=== PATIENT | female | born 1940 | race Caucasian/White ===

== ENCOUNTER → 2021-11-11 10:29 | Outpatient (BNVA) | payer MEDICARE, SELFPAY | PROVIDERS: Visit Provider Specialist | DX: G56.01 Carpal tunnel syndrome, right upper limb (principal); M65.341 Trigger finger, right ring finger; M72.0 Palmar fascial fibromatosis [Dupuytren] | CPT/HCPCS: 73130; 99204 ==

== ENCOUNTER → 2021-12-24 10:35 | Outpatient (BNVA) | payer MEDICARE, SELFPAY | PROVIDERS: PCP Registered Nurse; Referring Provider Specialist; Visit Provider Specialist | DX: G56.02 Carpal tunnel syndrome, left upper limb (principal); G56.22 Lesion of ulnar nerve, left upper limb | CPT/HCPCS: 95908; 95910 ==

== ENCOUNTER → 2022-01-09 10:24 | Outpatient (BNVA) | payer MEDICARE, SELFPAY | PROVIDERS: PCP Registered Nurse; Referring Provider Specialist; Visit Provider Specialist | DX: G56.01 Carpal tunnel syndrome, right upper limb (principal); G56.21 Lesion of ulnar nerve, right upper limb | CPT/HCPCS: 95860; 99202 ==

== ENCOUNTER → 2022-01-20 09:37 | Outpatient (BNVA) | payer MEDICARE, SELFPAY | PROVIDERS: PCP Registered Nurse; Visit Provider Specialist | DX: G56.01 Carpal tunnel syndrome, right upper limb (principal); M65.341 Trigger finger, right ring finger; G56.21 Lesion of ulnar nerve, right upper limb | CPT/HCPCS: 99215 ==

== ENCOUNTER 2022-02-07 09:12 | Day surgery (SDC) | payer MEDICARE, SELFPAY ==
[2022-02-07] VITALS (13 sets, daily range): BP systolic 135–225; BP diastolic 49–79; PULSE 50–64; RESP 16–18; TEMP 36.2–36.6; O2SAT 98–100
--- NOTE | 2022-02-07 09:53 | ANES.PREANE2 ---
Pre-Anesthetic Assessment Height/Weight: Height 1.63 m Weight 53.07 kg Preop Diagnosis: Right carpal tunnel syndrome with ring finger triggering right Operation Date: 02/07/22 10:55 Proposed Procedures p : RIGHT CARPAL TUNNEL RELEASE WITH RIGHT RING FINGER TRIGGER FINGER RELEASE [id number], G56.0,M65.30(Right) - Bell Anderson MD s Trigger Finger Release(Right) - Bell Anderson MD Familial anesthetic complications: None Was Beta Erwin taken within 24 hours: Yes Was Clonidine taken within 24 hours: N/A Last intake: > 8hrs Social Tobacco, No alcohol and No tobacco Exam alert, oriented x 3, clear to auscultation bilaterally and regular rate & rhythm Airway Mallampati: Class II Dentition: full CV/HEM Hypertension GI Gastroesophageal Reflux Disease Metabolic Hyperlipidemia and Thyroid Disease Anesthetic Plan ASA status: 3 Anesthesia: General Risk of > 500 ml blood loss (7ml/kg in children): No Medications/Allergies Home Medications Medication Instructions Recorded Confirmed Last Taken Type amlodipine 5 mg tablet 5 mg PO DAILY 11/11/21 02/06/22 01/31/22 History duloxetine 30 mg capsule,delayed 30 mg PO DAILY 11/11/21 02/06/22 02/06/22 History release gabapentin 100 mg capsule 100 mg PO DAILY 11/11/21 02/06/22 02/06/22 History levothyroxine 25 mcg capsule 25 mcg PO DAILY 11/11/21 02/06/22 02/07/22 07:00 History metoprolol succinate 50 mg 50 mg PO BID 11/11/21 02/06/22 02/07/22 07:00 History tablet,extended release 24 hr pantoprazole 40 mg tablet,delayed 40 mg PO DAILY 11/11/21 02/06/22 02/07/22 07:00 History release rosuvastatin 10 mg tablet 10 mg PO DAILY 12/24/21 02/06/22 01/31/22 History Allergies Allergy/AdvReac Type Severity Reaction Status Date / Time Fentanyl Allergy Intermediate ALGY-Hives Uncoded 02/07/22 09:50 COUNT INCLUDES THE [facility] Anesthesia Social History Smoking and tobacco status: former smoker (60 years ago) Alcohol intake: never History of recent travel: No Data Anesthesia Cardiac Studies: No Data to Display
[2022-02-07] MEDS: acetaminophen 1,000 MG/100 ML PIGGYBACK 400 MG IV (10:25)
[2022-02-07] MEDS: sodium chloride 0.9% 1,000 ML 30 ML IV (10:25)
--- NOTE | 2022-02-07 10:28 | W.PM.OPSUD ---
Surgery/Procedure H&P Update DATE OF PROCEDURE: February 07, 2022 DATE H&P PERFORMED: 01/20/22 H&P UPDATE INFORMATION: I have reviewed H&P completed within last 30 days, I have examined patient prior to procedure and Changes to prior documentation as noted here CHANGES TO PREVIOUS DOCUMENTATION: The patient states her triggering of the right ring finger has resolved, and we will plan only right carpal tunnel release. PREOP DIAGNOSIS: Right carpal tunnel syndrome PLANNED PROCEDURE: Operation Date: 02/07/22 10:55 Proposed Procedures p : RIGHT CARPAL TUNNEL RELEASE [id number], G56.0 (Right) - Bell Anderson MD Related Problem List Diagnoses (1) Carpal tunnel syndrome on right:
[2022-02-07] MEDS: hyDRALAzine 20 mg/mL INJ 1 mL 5 MG IVP (10:34)
[2022-02-07] MEDS: CELEcoxib 200 mg Capsule 400 MG PO (10:40)
[2022-02-07] MEDS: ceFAZolin 2,000 MG in sodium chloride 0.9% (plus) 50 ML 100 MG IV (10:43)
--- NOTE | 2022-02-07 12:05 | P.OP_ITS ---
Operative Report Date of procedure: February 07, 2022 Pre-op diagnosis: Right carpal tunnel syndrome Post-op diagnosis: Right carpal tunnel syndrome Post-op findings: Significant compression across the carpal canal. No significant triggering. Procedure done: Right carpal tunnel release Specimens removed/disposition: None Pathology: none sent Surgeon: Bell Anderson Anesthesia: General (Per LMA, ASA 3) Estimated blood loss (mL): 2 Tourniquet time (min): 21 (At 250 mgHg) IV fluids (mL): 700 Urine output (mL): 0 (No Brown) Complications: None Findings: Significant compression across the carpal canal Condition: stable Disposition: PACU (Then to same-day surgery for discharge to home) Brief History: This is a 81 year old female patient who presents today for right carpal tunnel release. Upon initial evaluation, she had had some triggering of the right ring finger, and plans have been made to potentially release his trigger finger, but she notes that it has not been triggering since her last visit. She states her right hand pain has been on going for a couple of months. She denies any injury or trauma. 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 She explains she experiences a burning sensation across her right palm. She takes duloxetine and gabapentin for pain relief. In the office, consents were signed and questions were answered. Patient was scheduled for surgery as noted above. Procedure: The patient was brought to the operating theater. The patient had a general anesthesia per LMA, ASA 3. The tourniquet was elevated to 250 mmHg for a total tourniquet time of 21 minutes. The patient was also given Ancef 2 g preoperatively. The arm was then prepped and draped with DuraPrep in usual fas hion with the arm draped free. A surgical pause was performed. At the time, the surgical pause, we confirmed the site and side of surgery. We also confirmed the patient's identity, appropriate and timely administration of preoperative antibiotics and preoperative surgical markings. An incision was then made along the thenar crease. The incision crossed the wrist joint in a curvilinear fashion. Dissection continued through skin and soft tissues using a scalpel. The palmaris longus was identified along with the transverse carpal ligament. Each of these was released carefully to avoid injury to the median nerve.? The transverse carpal ligament was significantly thickened.? We were able to dissect gently into the carpal canal which was noted to be quite tight with significant compression across the median nerve. The nerve was visualized and was an hourglass shape with purplish discoloration. The canal was subsequently palpated to assure there was no bony encroachment upon the canal. The canal was then palpated distally and proximally to assure that my small finger was passed easily without impingement. Finding this to be so, attention was directed to closure. The wound was irrigated with ropivacaine plain. It was then closed with 2-0 nylon in an interrupted mattress fashion. Sterile dressing was then placed consisting of Dermabond, OpSite, fluffed fluffs, sterile soft roll, and an Satinder wrap. The tourniquet was released after 21 minutes. There were no complications. There were no specimens. The procedure was well tolerated. Plan is the patient will be discharged home. Related Problem List Diagnoses (1) Carpal tunnel syndrome on right:
--- NOTE | 2022-02-07 14:42 | ANE.PACU2 ---
Inpatient post-anesthesia follow up: Airway intact: Yes Vital signs: Temperature 98 F Pulse Rate 60 Respiratory Rate 17 Blood Pressure 155/60 Pulse Oximetry 99 Oxygen Delivery Me thod Room Air Oxygen Flow Rate 6 Fraction of Inspir ed Oxygen Hydration adequate: Yes Nausea and vomiting: No Pain level: 1 Mental status: Baseline
== END 2022-02-07 12:45 | disposition home or self-care (01) ==
PROVIDERS: PCP Registered Nurse; Visit Provider Specialist
PROC: (CPT 64721; principal; 2022-02-07 10:55)
DX: G56.01 Carpal tunnel syndrome, right upper limb (principal); K21.9 Gastro-esophageal reflux disease without esophagitis; E78.5 Hyperlipidemia, unspecified; I10 Essential (primary) hypertension; Z87.891 Personal history of nicotine dependence
CPT/HCPCS: 64721; J0131; J0360; J0690; J2405; J2704; J3490; J7030

== ENCOUNTER → 2022-02-19 08:23 | Outpatient (BNVA) | payer MEDICARE, SELFPAY | PROVIDERS: PCP Registered Nurse; Visit Provider Nurse Practitioner Family | DX: Z98.890 Other specified postprocedural states (principal) | CPT/HCPCS: 99024 ==

== ENCOUNTER 2024-10-07 14:12 | Emergency (ER) | payer MEDICARE, SELFPAY ==
--- NOTE | 2024-10-07 14:18 | ECG_ITS ---
[facility] [employer] Test Date: 2024-10-07 Pat Name: Billie Calabrese Department: Room: Gender: Female Debug Technician: : 1940 Requested By: Nathan Griffin Order Number: [id number] Reading MD: Simon Wills M.D. Measurements Intervals [place] Rate: 60 P: 62 UT: 247 QRS: 34 QRSD: 92 T: 54 QT: 417 QTc: 419 Interpretive Statements SINUS RHYTHM WITH FIRST DEGREE AV BLOCK LOW QRS VOLTAGE IN PRECORDIAL LEADS [QRS DEFLECTION < 1.0 mV IN CHEST LEADS] No previous ECG available for comparison Electronically Signed On 10-08-2024 20:48:44 CDT by Simon Wills M.D. [id number]
[2024-10-07 14:19] VITALS: BP 163/61; PULSE 64; RESP 16; TEMP 36.6; O2SAT 99
--- NOTE | 2024-10-07 14:21 | XR_ITS ---
WS: [id number] Portable AP upright chest, 10/07/2024 Clinical Data: cp Comparison: None. Findings: No nodules, masses or effusions are seen. The heart is normal. The pulmonary vascularity is not increased. No pneumonia or pneumothorax is seen. The aortic arch shows calcification and tortuosity. There are monitor leads on the chest wall. XR/XR chest 1V portable [id number] Impression: Atherosclerosis.
--- OUTSIDE RECORDS SUMMARY | 2024-10-07 14:22 | XMS_ITS | Clinical Summary ---
Author Organization [facility] [address] [facility] Address [address] [place] [address] Phone Care Team Providers Care Radio Board Operator Name Role Phone Caryn Mccann MD Primary Care Provider [phone] Allergies Active Allergy Reactions Criticality Noted Date Comments Fentanyl Hives High 05/10/2020 Medications diphenhydrAMINE (BENADRYL) 25 mg tablet Take 25 mg by mouth 1 time daily as needed for Allergies. Active omeprazole (PriLOSEC) 40 mg Capsule, Delayed Release(E.C.) Take 1 Capsule (40 mg) by mouth daily. 90 Capsule 1 1 Active amLODIPine (NORVASC) 5 mg tablet Take 1 Tablet (5 mg) by mouth daily. 90 Tablet 1 1 Active metoprolol tartrate (LOPRESSOR) 50 mg tablet Take 1 Tablet (50 mg) by mouth 2 times daily. 180 Tablet 1 1 Active levothyroxine 25 mcg tablet Take 1 Tablet (25 mcg) by mouth daily in the morning. 90 Tablet 1 1 Active hydrOXYzine HCL (ATARAX) 25 mg tablet Take 1 Tablet (25 mg) by mouth 3 times daily as needed for Itching. 60 Tablet 1 1 Active sulfaSALAzine (AZULFIDINE) 500 mg tablet Take 1 Tablet (500 mg) by mouth 4 times daily. 360 Tablet 1 1 Active lisinopriL (PRINIVIL) 10 mg tablet Take 1 Tablet (10 mg) by mouth daily. 90 Tablet 1 1 Active DULoxetine (CYMBALTA) 30 mg Capsule, Delayed Release(E.C.) Take 1 Capsule (30 mg) by mouth daily. 90 Capsule 1 1 Active rosuvastatin (CRESTOR) 10 mg tablet Take 1 Tablet (10 mg) by mouth daily. 90 Tablet 1 1 Active nitroglycerin (NITROSTAT) 0.4 mg Tablet, Sublingual Place 1 Tablet (0.4 mg) under tongue every 5 minutes as needed for Chest Pain. 25 Tablet 1 1 Active HYDROcodone-acet aminophen (NORCO) 5-325 mg tabletIndication s:Arthralgia, unspecified joint Take 1 Tablet by mouth 2 times daily as needed for Pain, Moderate (Arthritis). Max Daily Amount: 2 Tablets 46 Tablet 1 Active gabapentin (NEURONTIN) 100 mg capsule Take 1 Capsule (100 mg) by mouth daily. 90 Capsule 1 1 Active Active Problems Problem Noted Date Diagnosed Date Abnormal mammogram 05/10/2020 Chest pain 05/10/2020 Benign hypertension 05/10/2020 Hyperlipidemia 05/10/2020 Hypothyroidism 05/10/2020 Neuropathy 05/10/2020 Pruritus 05/10/2020 Gastroesophageal reflux disease 05/10/2020 Immunizations Immunization Administration Dates Next Due (SPIKEVAX) (12 YRS UP PRIMAR Y SERIES) COVID-19 VACCINE - MRNA-1273(PF) 100 MCG/0.5 ML IM SUSP 06/19/2020 Family History Medical History Relation Name Comments Cancer Father Diabetes Mother Heart Disease Mother Other Mother Cancer Sister 1 Diabetes Sister 1 Other Sister 1 Other Sister 2 Other Sister 3 Relation Name Status Comments Father Mother Sister 1 Alive Sister 2 Alive Sister 3 Alive Social History Tobacco Use Types Packs/Day Years Used Date Smoking Tobacco: Former Cigarettes Q uit: 05/10/1965 Smokeless Tobacco: Former Alcohol Use Standard Drinks/Week Comments Never 0 (1 standard drink = 0.6 oz pur e alcohol) Comments No Sex and Gender Information Value Date Recorded Sex Assigned at Not on file Legal Sex Female 9:39 AM CDT Gender Identity Not on file Sexual Orientation Not on file Last Filed Vital Signs Vital Sign Reading Time Taken Comments Blood Pressure 140/60 06/25/2020 10:57 AM CDT Pulse 60 06/25/2020 10:57 AM CDT Temperature 36.2 C (97.2 F) 06/25/2020 10:57 AM CDT Respiratory Rate 16 05/16/2020 2:35 PM CDT Oxygen Saturation 97% 06/25/2020 10:57 AM CDT Inhaled Oxygen Concentration - - Weight 56.7 kg (125 lb) 06/25/2020 10:57 AM CDT Height 160 cm (5' 3 ) 06/25/2020 10:57 AM CDT Body Mass Index 22.14 06/25/2020 10:57 AM CDT Plan of Treatment Health Maintenance Due Date Last Done Comments DTAP/TDAP/TD VACCINES (1 - Tdap) 1959 Traditional Medicare (ACO) A nnual Wellness Visit 1959 PNEUMOCOCCAL VACCINE 50+ YEA RS (1 of 1 - PCV) 1992 ZOSTER VACCINE (1 of 2) 1992 RSV VACCINE (60+ or ) (1 - 1-dose 75+ series) 2017 COVID-19 Vaccine (2 - season) 2023 INFLUENZA VACCINE (#1) 2024 05/10/2020, 2020 OSTEOPOROSIS SCREENING 01/03/2025 01/04/2020 Procedures Procedure Name Priority Date/Time Associated Diagnosis Comments XR DEXA BONE DENSITY AXIAL 1 OR MORE SITES Routine 01/04/2020 from Last 3 Months or Most Recently Relevant to Health Maintenance Results * XR DEXA BONE DENSITY AXIAL 1 OR MORE SITES (01/04/2020) Anatomical Region Laterality Modality Other us Abstract Spg Provider DIAGNOSTIC IMAGING ORDERAB LES Final Result from Last 3 Months or Most Recently Relevant to Health Maintenance Insurance MEDICARE PART A AND B Care Teams Radio Board Operator Relationship Specialty Start Date End Date Caryn Mccann MD [address] [phone] PCP - General Family Practice 05/16/20
--- OUTSIDE RECORDS SUMMARY | 2024-10-07 14:22 | XMS_ITS | Patient Health Record ---
Author Organization [facility] Address [address] [place], [place] [id number] Care Team Providers Care Desktop Engineer Name Role Phone Add, a provider Primary Care Provider LOREN Rodriguez Unavailable [phone] Allergies Allergen (clinical drug ingredient) Drug/Non Drug Allergy documented on EMR Reaction Allergy Type Onset Date Status fentanyl fentaNYL hives Drug Allergy Active Reason For Referral No Information Medications Medication SIG (Take, Route, Frequency, Duration) Notes Start Date End Date Status Tylenol 8 HR Arthritis Pain 650 mg 1 tab orally 2 times daily Unknown Prevagen Unknown metoprolol 50 mg 1 tab(s) orally twic e daily Unknown amLODIPine 10 mg 1 tab(s) orally once a day Unknown rosuvastatin 10 mg 1 tab(s) orally once a day Unknown benzonatate 100 mg 1-2 caps orally 3 ti mes a day for cough for 5 days 06/04/2024 Active levothyroxine 25 mcg (0.025 mg) 1 tab(s) orally once a day Unknown azithromycin 250 mg 2 tablets on the day, then 1 tablet daily for 4 days po once a day for 5 days 06/04/2024 Active pantoprazole 40 mg 1 tab(s) orally once a day Unknown Social History Tobacco Use: Social History Observation Description Date Details (start date - stop date) Never Smoker NA - NA Tobacco Use: Question Answer Notes Are you a: nonsmoker AUDIT-C (Standard) Question Answer Notes Did you have a drink containing alcohol in the p ast year? No Points 0 Interpretation Negative Vital Signs Heart Rate 80 /min 06/04/2024 Temperature 98.1 degrees Fahrenheit 06/04/2024 Respiratory Rate 18 /min 06/04/2024 Oximetry 99 06/04/2024 Blood pressure diastolic 48 mm Hg 06/04/2024 Height 62.0 in 06/04/2024 Blood pressure systolic 114 mm Hg 06/04/2024 Weight 129.4 lbs 06/04/2024 BMI 23.66 kg/m2 06/04/2024 Encounters Encounter Location Date Provider Diagnosis [facility] [address] [place], [place] [id number] 06/04/2024 LOREN BENAVIDESSINS Bronchitis J40 and Cerumen impaction H61.20 Assessments Encounter Date Diagnosis (ICD Code) Assessment Notes Treatment Notes Treatment Clinical Notes Section Notes 06/04/2024 Bronchitis (ICD-10 - J40) Increase fluids. May use OTC tylenol or ibuprofen for minor pain / fever; OTC antihistamines / decongestants as directed as needed to help with congestion or post nasal drip. Humidified air. Vicks vapo-rub. Take the prescribed antibiotic fully as directed. If symptoms persist or worsen, please come back for re-evaluation or follow-up with your PCP. Patient has voiced understanding. 06/04/2024 Cerumen impaction (ICD-10 - H61.20) Keep your ears clean and dry. You may use OTC Tylenol or ibuprofen as directed to help with minor irritation if needed, If you develop worsening pain or drainage from the ear, please come back for re-evaluation or follow-up with your PCP. Patient voiced understanding. 06/04/2024 Luz Maria Patten 06/04/2024 10:12:30 AM CDT > need to call pharmacy to verify mg dosage on meds. Meme Plan Of Treatment No Information Medical (General) History Medical History History ICD Code HTN hypothyroidism high cholestrol Surgical History Surgery Date(Month/Year) Gallbladder removal appendectomy Tonsillectomy Carpal tunnel Hospitalization History Reason Date(Month/Year) See above
--- OUTSIDE RECORDS SUMMARY | 2024-10-07 14:22 | XMS_ITS | Clinical Summary ---
Author Organization [facility] 1 [address] [facility] Address [address] [place] [address] Phone Care Team Providers Care Casting Operator Name Role Phone Pedro Shrestha MD Primary Care Provider [phone] Allergies Active Allergy Reactions Criticality Noted Date Comments Fentanyl Hives High 05/10/2020 Medications nitroglycerin (NITROSTAT) 0.4 mg Tablet, SublingualIndicat ions:Angina pectoris Place 1 Tablet (0.4 mg) under tongue every 5 minutes as needed for Chest Pain. 25 Tablet 1 022 Active Additional Information Patient not taking.Reported on 01/06/2023 acetaminophen (TYLENOL ARTHRITIS) 650 mg Extended Release tablet Take 650 mg by mouth every 6 hours as needed for Pain. Active dicyclomine (BENTYL) 10 mg capsuleIndication s:Irritable bowel syndrome with diarrhea Take 1 Capsule (10 mg) by mouth 4 times daily as needed for Other (See Comment) (intestinal spasm). 120 Capsule 023 Active EPINEPHrine (EPIPEN) 0.3 mg/0.3 mL Auto-InjectorIndi cations:Allergy to alpha-gal Inject 0.3 mL (0.3 mg) by intramuscular injection 1 time daily as needed for Anaphylaxis. 1 Each 1 023 Active Additional Information Patient not taking.Reported on 10/05/2023 triamcinolone acetonide (KENALOG) 0.5 % CreamIndications: Insect bite, unspecified site, initial encounter Apply to affected area 2 times daily. 15 Gram 024 Active amLODIPine (NORVASC) 10 mg tabletIndications :Essential hypertension Take 1 Tablet (10 mg) by mouth daily. 90 Tablet 3 024 Active metoprolol tartrate (LOPRESSOR) 50 mg tabletIndications :Essential hypertension Take 1 Tablet (50 mg) by mouth 2 times daily. 200 Tablet 3 024 Active rosuvastatin (CRESTOR) 10 mg tabletIndications :Hyperlipidemia, unspecified hyperlipidemia type Take 1 Tablet (10 mg) by mouth daily. 90 Tablet 3 024 Active hydrOXYzine HCL (ATARAX) 25 mg tabletIndications :Pruritus TAKE 1 TABLET BY MOUTH THREE TIMES DAILY NEEDED FOR ITCHING 90 Tablet 025 Active pantoprazole (PROTONIX) 40 mg Tablet, Delayed Release (E.C.)Indications :Gastroesophageal reflux disease, unspecified whether esophagitis present Take 1 Tablet (40 mg) by mouth daily. 100 Tablet 3 025 Active levothyroxine 25 mcg tabletIndications :Hypothyroidism, unspecified type TAKE 1 TABLET BY MOUTH ONCE DAILY IN THE MORNING 100 Tablet 1 025 Active levothyroxine 25 mcg tabletIndications :Hypothyroidism, unspecified type TAKE 1 TABLET BY MOUTH ONCE DAILY IN THE MORNING 100 Tablet 3 024 2024 Discontinued Active Problems Problem Noted Date Diagnosed Date Benign hypertension 05/10/2020 Gastroesophageal reflux disease 05/10/2020 Hyperlipidemia 05/10/2020 Hypothyroidism 05/10/2020 Neuropathy 05/10/2020 Abnormal mammogram 05/10/2020 Encounters Date Type Department Care Team Description 09/28/2024 External Device Data [facility]STRACTION Provider, Abstract 09/19/[address] [phone] Tiara Jose FNP Hypothyroidism, unspecified type 09/07/2024 External Device Data [facility]STRA[facility] Provider, Abstract 09/07/2024 External Device Data [facility] Provider, Abstract 09/07/2024 External Device Data [facility] Provider, Abstract 09/06/2024 External Device Data [facility] Provider, Abstract 08/29/[address] [phone] Tiara Jose FNP Referral (Echo) 08/10/2024 External Device Data [facility] Provider, Abstract 08/09/2024 External Device Data [facility] Provider, Abstract 07/14/2024 External Device Data [facility]STRA[facility] Provider, Abstract 07/14/2024 Orders Only [facility] [place] [address] [facility] [address] [place] [phone] Keshia GaldamezEMANI Gastroesophageal reflux disease, unspecified whether esophagitis present 07/13/2024 External Device Data [facility] Provider, Abstract 07/12/2024 External Device Data [facility] Provider, Abstract 07/11/2024 8:59 AM CDT - 07/11/2024 11:59 PM CDT Hospital Encounter [facility] [address] [facility] [place] [address] Discharge Disposition: Home or Self Care from Last 3 Months Immunizations Immunization Administration Dates Next Due (SPIKEVAX) (12 YRS UP PRIMAR Y SERIES) COVID-19 VACCINE - MRNA-1273(PF) 100 MCG/0.5 ML IM SUSP 06/19/2020 INFLUENZA VACCINE HIGH DOSE QUADRIVALENT 65 YR UP PF IM 12/16/2022,02/12/2021 02/12/2022 INFLUENZA VACCINE QUADRIVALENT RECOMB 18 YR UP P F IM 10/31/2021 INFLUENZA VACCINE TRIVALENT SPLIT VIRUS, (6 MOS UP), 0.5ML (PF), IM 02/18/2024 Family History Medical History Relation Name Comments Cancer Father Diabetes Mother Heart Disease Mother Other Mother Other Sister 1 Other Sister 2 Cancer Sister 3 Diabetes Sister 3 Other Sister 3 Relation Name Status Comments Father Mother Sister 1 Alive Sister 2 Alive Sister 3 Alive Social History Tobacco Use Types Packs/Day Years Used Date Smoking Tobacco: Former Cigarettes Q uit: 05/10/1965 Smokeless Tobacco: Former Tobacco Cessation:Counseling Given: No Alcohol Use Standard Drinks/Week Comments Never 0 (1 standard drink = 0.6 oz pur e alcohol) Comments No Sex and Gender Information Value Date Recorded Sex Assigned at Not on file Legal Sex Female 6:14 PM CDT Gender Identity Not on file Sexual Orientation Not on file Last Filed Vital Signs Vital Sign Reading Time Taken Comments Blood Pressure 130/78 06/27/2024 4:16 PM CDT Pulse 66 06/27/2024 4:16 PM CDT Temperature 35.9 C (96.7 F) 06/27/2024 4:16 PM CDT Respiratory Rate 16 06/27/2024 4:16 PM CDT Oxygen Saturation 100% 06/27/2024 4:16 PM CDT Inhaled Oxygen Concentration - - Weight 58.6 kg (129 lb 3.2 oz) 06/27/2024 4:16 P M CDT Height 162.6 cm (5' 4 ) 06/27/2024 4:16 PM CDT Body Mass Index 22.18 06/27/2024 4:16 PM CDT Plan of Treatment Upcoming Encounters Date Type Department Care Team (Late st Contact Info) Description 10/14/2024 2:45 PM CDT Appointment [facility] [address] [phone] Tiara Jose, [facility] [address] [phone] 02/17/2025 2:00 PM STUMMEL SELECTOR Office Visit [facility] [place] [address] [place] [address] Tiara Jose, [facility] [address] [place] [address] Health Maintenance Due Date Last Done Comments DTAP/TDAP/TD VACCINES (1 - Tdap) 1959 PNEUMOCOCCAL VACCINE 50+ YEA RS (1 of 1 - PCV) 1992 ZOSTER VACCINE (1 of 2) 1992 RSV VACCINE (60+ or ) (1 - 1-dose 75+ series) 2017 COVID-19 Vaccine (3 - 2023-2 5 season) 2023 06/19/2020, 05/22/2020 [place]) Preventative Visit/Annual Wellness Visit 02/24/2024 02/18/2024, 01/06/2023 INFLUENZA VACCINE (#1) 2024 , 12/16/2022, 10/31/2021, Additional history exists OSTEOPOROSIS SCREENING 01/03/2025 0, 01/04/2020, 01/04/2020, Additional history exists Procedures Procedure Name Priority Date/Time Associated Diagnosis Comments XR DEXA BONE DENSITY AXIAL 1 OR MORE SITES Routine 01/04/2020 12:00 AM STUMMEL SELECTOR from Last 3 Months or Most Recently Relevant to Health Maintenance Results * XR DEXA BONE DENSITY AXIAL 1 OR MORE SITES (01/04/2020 12:00 AM STUMMEL SELECTOR) Anatomical Region Laterality Modality Other us Abstract Spg Provider DIAGNOSTIC IMAGING ORDERAB LES Final Result from Last 3 Months or Most Recently Relevant to Health Maintenance Insurance [facility] MEDICARE HMO Care Teams Casting Operator Relationship Specialty Start Date End Date Pedro Shrestha MD [address] [facility] [address] [place] [address] PCP - General Family Practice 04/16/23
--- NOTE | 2024-10-07 15:19 | W.ED.CHESTPA ---
HPI - Chest Pain General: Chief Complaint: Chest Pain Stated Complaint: cp Time Seen by Provider: 10/07/24 14:42 Source: patient Mode of arrival: ambulatory Limitations: no limitations History of Present Illness: 84-year-old female who states that she started having chest pain this morning while driving. States then resolved on its returns to its pressure type pain she rates an 8 out of 10 she denies any shortness of breath denies any vomiting denies any diaphoresis. No history of coronary artery disease she denies any cough or fever. Associated symptoms: Deny abdominal pain, dyspnea, fever(s), nausea or vomiting Related Data Home Medications ?Medication ?Instructions ?Recorded ?Confirmed levothyroxine 25 mcg capsule 25 mcg PO DAILY 11/11/21 10/07/24 pantoprazole 40 mg tablet,delayed 40 mg PO DAILY 11/11/21 10/07/24 release rosuvastatin 10 mg tablet 10 mg PO DAILY 12/24/21 10/07/24 acetaminophen 650 mg 650 mg PO Q12H 10/07/24 10/07/24 tablet,extended release amlodipine 10 mg tablet 10 mg PO DAILY 10/07/24 10/07/24 hydroxyzine HCl 25 mg tablet 25 mg PO TID PRN Itching 10/07/24 10/07/24 metoprolol tartrate 50 mg tablet 50 mg PO BID 10/07/24 10/07/24 Allergies Allergy/AdvReac Type Severity Reaction Status Date / Time Fentanyl Allergy Intermediate ALGY-Hives Uncoded 02/19/22 08:38 Review of Systems Const: Denies: fever(s), chills, body aches or change in appetite ENMT: Denies: throat pain or dental pain Card: Reports: chest pain Resp: Denies: dyspnea GI: Denies: abdominal pain, nausea, vomiting or diarrhea Musc: Denies: neck pain or back pain Skin/Breast: Denies: rash Neuro: Denies: headache(s) PFSH ED PFSH: Social History Smoking and tobacco/nicotine status: former use of tobacco/nicotine (60 years ago) Alcohol intake: never Substance/Drug Use: never Physical Exam Const: COMMON NORMALS: no acute distress, patient oriented x3 and healthy appearing HENMT: COMMON NORMALS: normocephalic and atraumatic HEAD & SCALP: normocephalic and atraumatic Eye: COMMON NORMALS: conjunctivae normal CONJUNCTIVA: Yes conjunctivae normal Neck/C-Spine: COMMON NORMALS: full ROM and supple Chest: COMMONS NORMALS: normal inspection of the chest Resp: COMMON NORMALS: normal respiratory effort, No retractions, No use of accessory muscles and clear to auscultation bilaterally AUSCULTATION: clear to auscultation bilaterally Cardio: COMMON NORMALS: regular rate, regular rhythm and No murmurs present (Cardio) RATE: regular rate RHYTHM: regular rhythm GI: COMMON NORMALS: Normal to inspection, nondistended, normoactive bowel sounds present, Soft to palpation, non-tender and no masses PALPATION: Yes Soft to palpation Extremity: COMMON NORMALS: normal to inspection and full ROM Neuro: COMMON NORMALS: patient oriented x3, moves all extremities and no focal motor deficits Psych: COMMON NORMALS: mental status grossly normal, Normal thought process present and cooperative THOUGHT PROCESS: Normal thought process present Skin: COMMON NORMALS: no rashes or lesions noted and no wounds GENERAL SKIN EXAM: no rashes or lesions noted Course Vital Signs: Vital signs: Vital Signs Temperature 97.9 F 10/07/24 14:19 Pulse Rate 77 10/07/24 18:30 Respiratory Rate 21 H 10/07/24 18:30 Blood Pressure 133/57 10/07/24 18:30 Pulse Oximetry 96 10/07/24 18:30 Oxygen Delivery Me thod Room Air 10/07/24 14:19 MDM - Chest Pain Medical Decision Making Patient presents for chest pain she is now pain-free her troponins CAT scan are negative she has no signs of ACS no signs of PE she stable for discharge follow-up with PCP return if worsening. Medical Records I reviewed the patient's medical records. Lab Data I reviewed the patient's lab results. 10/07/24 15:18 10/07/24 15:18 Radiology Impressions Chest X-Ray 10/07/24 14:21 Impression: Atherosclerosis. Chest CTA 10/07/24 17:39 IMPRESSION: 1. No evidence of pulmonary embolism. 2. No acute findings in the chest. 3. Prior granulomatous disease. Laboratory Results WBC 8.31 10^3/uL (3.29-11.43) 10/07/24 15:18 RBC 4.30 10^6/uL (3.85-5.65) 10/07/24 15:18 Hgb 13.10 g/dL (11.27-16.99) 10/07/24 15:18 Hct 40.6 % (36-47) 10/07/24 15:18 MCV 94.4 fl (85-98) 10/07/24 15:18 MCH 30.5 pg (27-33) 10/07/24 15:18 MCHC 32.3 g/dL (30-55) 10/07/24 15:18 RDW 12.3 % (12.1-15.1) 10/07/24 15:18 Plt Count 234 10^3/cmm (157-399) 10/07/24 15:18 MPV 10.1 fL (7.4-10.4) 10/07/24 15:18 Neut % (Auto) 67.3 % 10/07/24 15:18 Lymph % (Auto) 17.9 % 10/07/24 15:18 Mayes % (Auto) 10.3 % 10/07/24 15:18 Eos % (Auto) 2.9 % 10/07/24 15:18 Baso % (Auto) 1.1 % 10/07/24 15:18 Neut # (Auto) 5.59 10^3/uL (1.8-7.7) 10/07/24 15:18 Lymph # (Auto) 1.5 10^3/uL (0.8-4.8) 10/07/24 15:18 Mayes # (Auto) 0.9 10^3/uL (0.2-0.9) 10/07/24 15:18 Eos # (Auto) 0.2 10^3/uL (0.0-0.8) 10/07/24 15:18 Baso # (Auto) 0.1 10^3/uL (0.0-0.1) 10/07/24 15:18 Nucleated RBC % (auto) 0 % 10/07/24 15:18 Nucleated RBCs # 0.0 /100WBC 10/07/24 15:18 Sodium 138 mmol/L (136-145) 10/07/24 15:18 Potassium 4.0 mmol/L (3.5-5.1) 10/07/24 15:18 Chloride 104 mmol/L (98-107) 10/07/24 15:18 Carbon Dioxide 17 mmol/L (22-29) L 10/07/24 15:18 Anion Gap 21.0 (5-19) H 10/07/24 15:18 BUN 15 mg/dL (8-23) 10/07/24 15:18 Creatinine 0.6 mg/dL (0.5-0.9) 10/07/24 15:18 GFR Calculation Not Reportable 10/07/24 15:18 Glucose 106 mg/dL (65-115) 10/07/24 15:18 Calculated Osmolality 287 mOsm/kg (285-295) 10/07/24 15:18 Calcium 9.3 mg/dL (8.5-10.5) 10/07/24 15:18 Total Bilirubin 0.5 mg/dL (0.15-1.2) 10/07/24 15:18 AST 48 U/L (0-32) H 10/07/24 15:18 ALT 49 U/L (0-33) H 10/07/24 15:18 Alkaline Phosphatase 113 U/L (35-105) H 10/07/24 15:18 Troponin T Baseline < 6 ng/L (0-10) 10/07/24 15:18 Troponin T 120 Minute < 6.0 ng/L (0-10) 10/07/24 18:15 Delta Troponin T 0 ABS# (0-10) 10/07/24 18:15 Total Protein 7.3 g/dL (6.6-8.7) 10/07/24 15:18 Albumin 4.4 g/dL (3.5-5.2) 10/07/24 15:18 Globulin 2.9 g/dL (1.3-4.6) 10/07/24 15:18 Lipase 49 U/L (13-60) 10/07/24 15:18 All radiology interpretation(s) finalized by discharge Clincial Decision Support The following clinical decision support tools were used to aid in care of the patient HEART Score -> History: Slightly Suspicous, EKG: Normal, Age: 65 or more yrs, Risk Factors: 1 or 2 Risk Factors, Troponin: Baseline Trop <16 ng/L. Resulting HEART Score: 3. Discharge Plan Discharge Patient Disposition: Home Clinical Impression: Chest pain Condition: Stable Prescriptions: No Action rosuvastatin 10 mg tablet 10 mg PO DAILY pantoprazole 40 mg tablet,delayed release (DR/EC) 40 mg PO DAILY levothyroxine 25 mcg capsule 25 mcg PO DAILY acetaminophen [Tylenol Arthritis] 650 mg Tablet Extended Release 650 mg PO Q12H amlodipine 10 mg tablet 10 mg PO DAILY metoprolol tartrate 50 mg tablet 50 mg PO BID hydroxyzine HCl 25 mg tablet 25 mg PO TID PRN (Reason: Itching) Discharge Orders: Discharge ED (Routine); Ordered 10/07/24 Ordered By: Nathan Griffin Referrals: Tiara Jose [Primary Care Provider, Family Practice] Discharge Diet: Advance as tolerated Discharge Activity: Resume usual activity Patient Instructions: Chest Pain (ED) Print Language: Trinidadian Coding Level of Care Code ED Thread Clipper for Krista Aguilar
[2024-10-07 15:26] LABS: Hematocrit 40.6 % (36-47); Hemoglobin 13.10 g/dL (11.27-16.99); Mean Corpuscular HGB Conc 32.3 g/dL (30-55); Mean Corpuscular Hemoglobin 30.5 pg (27-33); Mean Corpuscular Volume 94.4 fl (85-98); Nucleated Red Blood Cells % 0 %; Platelet Count 234 10^3/cmm (157-399); Red Blood Count 4.30 10^6/uL (3.85-5.65); White Blood Count 8.31 10^3/uL (3.29-11.43)
[2024-10-07 15:46] LABS: Troponin(5th) Baseline < 6 ng/L (0-10)
[2024-10-07 16:19] LABS: Alanine Aminotransferase 49 U/L (0-33); Albumin Level 4.4 g/dL (3.5-5.2); Alkaline Phosphatase 113 U/L (35-105); Anion Gap 21.0 (5-19); Aspartate Amino Transferase 48 U/L (0-32); Blood Urea Nitrogen 15 mg/dL (8-23); Calcium 9.3 mg/dL (8.5-10.5); Carbon Dioxide 17 mmol/L (22-29); Chloride 104 mmol/L (98-107); Creatinine Clr Calc Pharmacy 48.1233; Globulin 2.9 g/dL (1.3-4.6); Glucose 106 mg/dL (65-115); Lipase 49 U/L (13-60); Osmolality Calculated 287 mOsm/kg (285-295); Potassium 4.0 mmol/L (3.5-5.1); Sodium 138 mmol/L (136-145); Total Protein 7.3 g/dL (6.6-8.7)
[2024-10-07 16:47] VITALS: BP 156/57; PULSE 68; RESP 17; O2SAT 97
--- NOTE | 2024-10-07 16:57 | ECG_ITS ---
[facility]: 2024-10-07 Pat Name: Billie Calabrese Department: Room: Gender: Female Piper Helper: : 1940 Requested By: Nathan Grififn Order Number: [id number] Brian MD: Simon Wills M.D. Measurements Intervals [place] Rate: 69 P: 66 DC: 261 QRS: 30 QRSD: 91 T: 54 QT: 399 QTc: 428 Interpretive Statements SINUS RHYTHM WITH FIRST DEGREE AV BLOCK Compared to ECG 10/07/2024 14:18:57 No significant changes Electronically Signed On 10-09-2024 17:13:29 CDT by Simon Wills M.D. [email or web address]
[2024-10-07 17:00] VITALS: BP 155/58; PULSE 69; RESP 11; O2SAT 99
[2024-10-07 17:30] VITALS: BP 147/57; PULSE 70; RESP 15; O2SAT 94
--- NOTE | 2024-10-07 17:39 | CTR_ITS ---
PROCEDURE INFORMATION: Exam: CTA Chest With Contrast Exam date and time: 10/07/2024 5:57 PM Age: 84 years old Clinical indication: Chest pressure; C/O chest pain; Additional info: Cp TECHNIQUE: Imaging protocol: Computed tomographic angiography of the chest with contrast. Exam focused on the arteries. 3D rendering (Not supervised by radiologist): MIP and/or 3D reconstructed images were created by the technologist. Radiation optimization: All CT scans at this facility use at least one of these dose optimization techniques: automated exposure control; mA and/or kV adjustment per patient size (includes targeted exams where dose is matched to clinical indication); or iterative reconstruction. Contrast material: OMNI 350; Contrast volume: 61 ml; Contrast route: INTRAVENOUS (IV); COMPARISON: CR XR chest 1V portable [id number] 10/07/2024 3:18 PM RADIATION DOSE METRICS: Total DLP (mGy-cm): 229.94 FINDINGS: Pulmonary arteries: Normal. No pulmonary emboli. Aorta: Moderate diffuse aortic calcifications. No thoracic aortic aneurysm. Thyroid: Subcentimeter right thyroid nodule is likely of no clinical significance. Atrophic thyroid. Lungs: Mild biapical pleural/parenchymal scarring. Mild bibasilar atelectasis. Calcified granulomas in the right lower lobe. No suspicious pulmonary mass. Pleural spaces: Unremarkable. No pneumothorax. No pleural effusion. Heart: Trace pericardial fluid. Lymph nodes: Calcified right hilar lymph nodes from prior granulomatous disease. Diaphragm: Small sliding-type hiatal hernia. Liver: Calcified hepatic granulomas. Gallbladder and biliary ducts: The gallbladder may be surgically absent. Spleen: Calcified splenic granulomas. Bones/joints: Degenerative changes of the thoracic spine. No acute or aggressive osseous lesion. Soft tissues: Unremarkable. CT/CT angio chest PE protcl [id number] IMPRESSION: 1. No evidence of pulmonary embolism. 2. No acute findings in the chest. 3. Prior granulomatous disease.
[2024-10-07 18:00] VITALS: BP 139/43; PULSE 72; RESP 15; O2SAT 96
[2024-10-07] MEDS: iohexol 350 mg/mL 500 mL Btl (per mL) IV (18:01)
[2024-10-07 18:30] VITALS: BP 133/57; PULSE 77; RESP 21; O2SAT 96
[2024-10-07 18:57] LABS: Troponin 5 2HR < 6.0 ng/L (0-10); Troponin 5 2HR Delta 0 ABS# (0-10)
== END 2024-10-07 19:32 | disposition home or self-care (01) ==
PROVIDERS: Emergency Provider Emergency Medicine; PCP Registered Nurse
DX: R07.9 Chest pain, unspecified (principal); Z87.891 Personal history of nicotine dependence
CPT/HCPCS: 36415; 71045; 71275; 80053; 83690; 84484; 85025; 93005; 99285; J9999